=== PATIENT | male | born 1955 | race Caucasian/White ===

== ENCOUNTER 2020-05-29 06:22 | Day surgery (SDC) | payer BC, OTHER ==
[~2020-05-29 06:22] MED LIST: Sodium Chloride 0.9% 1,000 ML IV SCH
[2020-05-29] MEDS ORDERED: Sodium Chloride 0.9% 1,000 ML IV SCH (07:00)
[2020-05-29] MEDS ORDERED: fentaNYL 100 MCG/2 ML SDV ONE (07:15)
[2020-05-29] MEDS ORDERED: Propofol 200 MG/20 ML SDV ONE (07:16)
[2020-05-29] MEDS ORDERED: Midazolam 1 MG/ML 2 ML SDV ONE (07:16)
--- NOTE | 2020-05-29 11:50 | OR ---
DATE OF PROCEDURE: 05/29/2020 SURGEON: Nitin Hall MD PROCEDURE: Colonoscopy. FINDINGS: 1. Ascending colon polyp, approximately 5 mm, completely removed using cold biopsy forceps. 2. Ascending colon polyp, approximately 8 mm, completely removed using hot snare wire device. 3. Diverticulosis, mild, limited to sigmoid colon. COMPLICATIONS: None. GENERAL DENTIST: None. ANESTHESIA: MAC. PREOPERATIVE DIAGNOSIS: Screening colonoscopy. POSTOPERATIVE DIAGNOSIS: Screening colonoscopy. RISKS: Risks, benefits, alternatives, and limitations including, but not limited to infection, bleeding, perforation, false positives, false negatives were explained to the patient who wished to proceed. PROCEDURE IN DETAIL: The patient was placed in a left lateral decubitus position. Digital rectal exam was performed without abnormality. Scope was introduced and advanced atraumatically to the ileocecal valve. A photo was taken of this. Scope was brought back to the ascending, transverse, descending colon, and retroflexed. The aforementioned polyps were identified and completely removed. No evidence of old or new blood. Diverticulosis was described as mild, limited to sigmoid colon, mostly without evidence of diverticulitis or bleeding. No evidence of other abnormalities. The prep was acceptable, approximately 90% of the luminal surface could be seen. No abnormalities on retroflexion. Greater than 8 minutes was spent removing the scope. The patient tolerated the procedure well. Nitin Hall MD /[id number]
== END 2020-05-29 09:52 | disposition home or self-care (01) ==
LOC: JP.SDS 06:22
PROVIDERS: ATTEND Surgery
DX: Z12.11 Encounter for screening for malignant neoplasm of colon (principal); D12.2 Benign neoplasm of ascending colon; K57.30 Diverticulosis of large intestine without perforation or abscess without bleeding; Z88.2 Allergy status to sulfonamides
CPT/HCPCS: 45380; 45385; 88305; J2250; J2704; J3010; J7030